=== PATIENT | female | born 1995 | race Caucasian/White ===

== ENCOUNTER 2018-07-13 09:48 | Emergency (ER) | payer SELFPAY ==
[2018-07-13] MEDS ORDERED: NA CHLORIDE 0.9% 1,000 ML ONE (10:18)
[2018-07-13] MEDS ORDERED: KETOROLAC 30 MG/ML INJ ONE (10:23)
[2018-07-13 10:24] LABS: Absolute Lymphocytes (CBC) 3.1 K/uL (0.7-4.9); Absolute Monocytes 0.5 K/uL (0.1-1.3); Absolute Neutrophil 4.4 K/uL (1.8-8.0); Basophils % 0.7 % (0-1.3); Eosinophils % 2.8 % (0-4.4); Hematocrit 43.5 % (36.0-45.0); Lymphocytes % 37.7 % (15.3-44.8); MCH 30.6 pg (27.0-35.0); MCV 88.2 fL (80-100); MPV 9.1 fL (7.6-11.3); Monocytes % 5.9 % (3.3-12.3); RBC Red Blood Cell Count 4.93 M/uL (3.86-4.86)
[2018-07-13 10:37] LABS: BUN Blood Urea Nitrogen 12 mg/dL (7-18); Bicarbonate 25 mmol/L (21-32); Glucose Level 79 mg/dL (74-106); Sodium Level 141 mmol/L (136-145)
--- NOTE | 2018-07-13 11:07 | RAD REPORT ---
EXAM DESCRIPTION: CT - Abdomen Pelvis W Contrast - 07/13/2018 10:57 am CLINICAL HISTORY: Left lower quadrant pain, diarrhea, prior cholecystectomy COMPARISON: None. TECHNIQUE: Biphasic, helical CT imaging of the abdomen and pelvis was performed following 100 ml non -ionic IV contrast. No oral contrast given. All CT scans are performed using dose optimization technique as appropriate and may include automated exposure control or mA/KV adjustment according to patient size. FINDINGS: No suspicious findings in the lung bases. The liver, spleen, and pancreas show no suspicious focal findings. Liver is borderline fatty infiltra camilo. Cholecystectomy clips are present with no biliary tree dilatation. Symmetric renal function is seen with no hydronephrosis or suspicious renal mass. No pyelonephritis o r acute renal parenchymal process. No adrenal abnormality. Contracted urinary bladder shows no bladde r stone. Further assessment is limited. Small follicles or cysts identified in each ovary. No fallopian tube dilatation. No dominant ovarian or adnexal finding. Uterus is unremarkable. No dilated bowel loops or bowel wall thickening. Appendix is normal. No free air, free fluid or infla mmatory stranding. No hernia, mass or bulky lymphadenopathy. No suspicious bony findings. IMPRESSION: Contrast enhanced CT abdomen and pelvis showing no significant or suspicious finding. N o abnormality seen to explain left lower quadrant pain.
[2018-07-13 11:10] LABS: Urine Blood 2+ (NEG); Urine Glucose NEGATIVE (NEG); Urine Protein NEGATIVE (NEG); Urine Specific Gravity >1.030 (1.005-1.030); Urine pH 5.5 (5.0-7.0)
[2018-07-13 11:10] LABS: Urine Specific Gravity >1.030 (1.005-1.030)
--- NOTE | 2018-07-13 11:42 | EDPHYS ---
Physician Documentation [facility] Name: Maxine Malone Age: 23 yrs Sex: Female : 1995 Arrival Date: 07/13/2018 Time: 09:53 Bed 5 Private MD: None, None ED Physician Armando Granados HPI: 07/13 10:18 This 23 yrs old Female presents to ER via Ambulatory with complaints of kb Diarrhea, Abdominal Pain. 10:18 The patient presents with abdominal pain in the left lower quadrant. Onset: The kb symptoms/episode began/occurred 4 day(s) ago. The symptoms do not radiate. Associated signs and symptoms: Pertinent positives: diarrhea, nausea, Pertinent negatives: vomiting. The symptoms are described as constant. Modifying factors: The symptoms are alleviated by nothing, the symptoms are aggravated by pressure. Severity of pain: At its worst the pain was moderate in the emergency department the pain is unchanged. The patient has not experienced similar symptoms in the past. The patient has not recently seen a physician. 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 - Social history:: Smoking status: Patient uses tobacco products, smokes one-half pack cigarettes per day. - Ebola Screening: : No symptoms or risks identified at this time. ROS: 10:17 Constitutional: Negative for fever, chills, and weight loss, Cardiovascular: Negative kb for chest pain, palpitations, and edema, Respiratory: Negative for shortness of breath, cough, wheezing, and pleuritic chest pain, Back: Negative for injury and pain, : Negative for injury, bleeding, discharge, and swelling, MS/Extremity: Negative for injury and deformity, Skin: Negative for injury, rash, and discoloration, Neuro: Negative for headache, weakness, numbness, tingling, and seizure. 10:17 Abdomen/GI: Positive for abdominal pain, nausea, diarrhea, Negative for vomiting. Exam: 10:17 Constitutional: This is a well developed, well nourished patient who is awake, alert, kb and in no acute distress. Head/Face: Normocephalic, atraumatic. Chest/axilla: Normal chest wall appearance and motion. Nontender with no deformity. No lesions are appreciated. Cardiovascular: Regular rate and rhythm with a normal S1 and S2. No gallops, murmurs, or rubs. Normal PMI, no JVD. No pulse deficits. Respiratory: Lungs have equal breath sounds bilaterally, clear to auscultation and percussion. No rales, rhonchi or wheezes noted. No increased work of breathing, no retractions or nasal flaring. Skin: Warm, dry with normal turgor. Normal color with no rashes, no lesions, and no evidence of cellulitis. MS/ Extremity: Pulses equal, no cyanosis. Neurovascular intact. Full, normal range of motion. Neuro: Awake and alert, GCS 15, oriented to person, place, time, and situation. Cranial nerves II-XII grossly intact. Motor strength 5/5 in all extremities. Sensory grossly intact. Cerebellar exam normal. Normal gait. 10:17 Abdomen/GI: Inspection: abdomen appears normal, Bowel sounds: normal, in all quadrants, Palpation: soft, in all quadrants, mild abdominal tenderness, in the left upper quadrant, moderate abdominal tenderness, in the left lower quadrant. Vital Signs: 09:56 BP 151 / 91; Pulse 92; Resp 18 S; Temp 98.3(TE); Pulse Ox 98% on R/A; Weight 108.86 kg aa5 (R); Height 5 ft. 8 in. (172.72 cm) (R); Pain 5/10; 10:39 BP 125 / 80; Pulse 90; Resp 18; Pulse Ox 100% on R/A; hj 11:02 BP 124 / 78; Pulse 82; Resp 18; Pulse Ox 100% on R/A; hj 09:56 Body Mass Index 36.49 (108.86 kg, 172.72 cm) aa5 MDM: 09:59 Patient medically screened. kb 10:17 Data reviewed: vital signs, nurses notes. Data interpreted: Pulse oximetry: on room air kb is 98 %. Interpretation: normal. 11:15 Counseling: I had a detailed discussion with the patient and/or guardian regarding: the kb historical points, exam findings, and any diagnostic results supporting the discharge/admit diagnosis, lab results, radiology results, the need for outpatient follow up, a family practitioner, to return to the emergency department if symptoms worsen or persist or if there are any questions or concerns that arise at home. 10/08 10:08 Order name: Urine Dipstick--Ancillary (enter results); Complete Time: 11:11 iw 07/13 10:09 Order name: Urine --Ancillary (enter results); Complete Time: 11:10 iw 07/13 10:10 Order name: Basic Metabolic Panel; Complete Time: 10:42 kb 07/13 10:10 Order name: CBC with Diff; Complete Time: 10:33 kb 07/13 10:11 Order name: CT Abd/Pelvis - W/Contrast; Complete Time: 11:08 kb 07/13 10:07 Order name: Urine Dipstick-Ancillary (obtain specimen); Complete Time: 10:08 iw 07/13 10:08 Order name: Urine Test (obtain specimen); Complete Time: 10:08 iw 07/13 10:10 Order name: IV Saline Lock; Complete Time: 10:11 kb 07/13 10:10 Order name: Labs collected and sent; Complete Time: 10:11 kb Administered Medications: 10:11 Drug: NS 0.9% 1000 ml Route: IV; Rate: 1000 ml; Site: right forearm; hj 11:44 Follow up: IV Status: Completed infusion; IV Intake: 1000ml hj 10:13 Drug: TORadol 30 mg Route: IVP; Site: right forearm; hj 10:25 Follow up: Response: No adverse reaction; Pain is decreased hj Disposition: 16:31 Co-signature as Attending Physician, Armando Granados MD. gs Disposition: 07/13/18 11:41 Discharged to Home. Impression: Diarrhea, unspecified, Other abdominal pain - left sided. - Condition is Stable. - Discharge Instructions: Food Choices to Help Relieve Diarrhea, Adult, Diarrhea, Adult, [id number]. - Prescriptions for Bentyl 20 mg Oral Tablet - take 1 tablet by ORAL route every 6 hours As needed; 20 tablet. Zofran 4 mg Oral Tablet - take 1 tablet by ORAL route every 6 hours As needed; 20 tablet. - Medication Reconciliation Form, Thank You Letter, Antibiotic Education, Prescription Opioid Use, Family Work Release form. - Follow up: Emergency Department; When: As needed; Reason: Worsening of condition. Follow up: Private Physician; When: 2 - 3 days; Reason: Recheck today's complaints, Continuance of care, Re-evaluation by your physician. Signatures: Dispatcher [employer] EDHI Ina Mathew, TICKET TAKER-C TICKET TAKER-Ckb Kirstie Saul, RN RN iw Annita Mckenzie, RN RN aa5 Art Fink, Armando Galindo RN, MD MD gs Corrections: (The following items were deleted from the chart) 11:50 11:41 07/13/2018 11:41 Discharged to Home. Impression: Diarrhea, unspecified; Other hj abdominal pain - left sided. Condition is Stable. Discharge Instructions: Food Choices to Help Relieve Diarrhea, Adult, Diarrhea, Adult, [id number]. Forms are Medication Reconciliation Form, Thank You Letter, Antibiotic Education, Prescription Opioid Use. Follow up: Emergency Department; When: As needed; Reason: Worsening of condition. Follow up: Private Physician; When: 2 - 3 days; Reason: Recheck today's complaints, Continuance of care, Re-evaluation by your physician. kb 11:52 11:50 07/13/2018 11:41 Discharged to Home. Impression: Diarrhea, unspecified; Other hj abdominal pain - left sided. Condition is Stable. Discharge Instructions: Food Choices to Help Relieve Diarrhea, Adult, Diarrhea, Adult, [id number]. Prescriptions for Bentyl 20 mg Oral Tablet - take 1 tablet by ORAL route every 6 hours As needed; 20 tablet, Zofran 4 mg Oral Tablet - take 1 tablet by ORAL route every 6 hours As needed; 20 tablet. and Forms are Medication Reconciliation Form, Thank You Letter, Antibiotic Education, Prescription Opioid Use. Follow up: Emergency Department; When: As needed; Reason: Worsening of condition. Follow up: Private Physician; When: 2 - 3 days; Reason: Recheck today's complaints, Continuance of care, Re-evaluation by your physician. hj
--- NOTE | 2018-07-13 11:42 | ER ---
Nurse's Notes [facility] Name: Maxine Malone Age: 23 yrs Sex: Female : 1995 Arrival Date: 07/13/2018 Time: 09:53 Bed 5 Private MD: None, None Diagnosis: Diarrhea, unspecified;Other abdominal pain-left sided Presentation: 07/13 09:57 Presenting complaint: Patient states: LLQ pain that began 4 days ago, pt also reports aa5 diarrhea. Transition of care: patient was not received from another setting of care. Onset of symptoms was July 2018. Risk Assessment: Do you want to hurt yourself or someone else? Patient reports no desire to harm self or others. Initial Sepsis Screen: Does the patient meet any 2 criteria? No. Patient's initial sepsis screen is negative. Does the patient have a suspected source of infection? No. Patient's initial sepsis screen is negative. Care prior to arrival: None. 09:57 Method Of Arrival: Ambulatory aa5 09:57 Acuity: KAILA 3 aa5 Triage Assessment: 10:01 General: Appears in no apparent distress. uncomfortable, Behavior is calm, cooperative, hj appropriate for age. Pain: Complains of pain in abdomen. GI: Reports upper abdominal pain, cramping, diarrhea. 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 - Social history:: Smoking status: Patient uses tobacco products, smokes one-half pack cigarettes per day. - Ebola Screening: : No symptoms or risks identified at this time. Screenin:01 Abuse screen: Denies threats or abuse. Denies injuries from another. Nutritional hj screening: No deficits noted. Tuberculosis screening: No symptoms or risk factors identified. Fall Risk None identified. Assessment: 10:02 General: Appears in no apparent distress. uncomfortable, Behavior is calm, cooperative, hj appropriate for age. Pain: Complains of pain in abdomen. Neuro: Level of Consciousness is awake, alert, obeys commands, Oriented to person, place, time, situation, Appropriate for age. Cardiovascular: Capillary refill < 3 seconds Patient's skin is warm and dry. Respiratory: Airway is patent Respiratory effort is even, unlabored, Respiratory pattern is regular, symmetrical. GI: No signs and/or symptoms were reported involving the gastrointestinal system. : No signs and/or symptoms were reported regarding the genitourinary system. EENT: No signs and/or symptoms were reported regarding the EENT system. Derm: No signs and/or symptoms reported regarding the dermatologic system. Musculoskeletal: No signs and/or symptoms reported regarding the musculoskeletal system. 10:30 Reassessment: Patient and/or family updated on plan of care and expected duration. Pain hj level reassessed. Patient is alert, oriented x 3, equal unlabored respirations, skin warm/dry/pink. pain level decreased from 6 to 2;. 10:44 Reassessment: pt wheeled to CT;. hj 11:01 Reassessment: pt back from CT:. hj Vital Signs: 09:56 BP 151 / 91; Pulse 92; Resp 18 S; Temp 98.3(TE); Pulse Ox 98% on R/A; Weight 108.86 kg aa5 (R); Height 5 ft. 8 in. (172.72 cm) (R); Pain 5/10; 10:39 BP 125 / 80; Pulse 90; Resp 18; Pulse Ox 100% on R/A; hj 11:02 BP 124 / 78; Pulse 82; Resp 18; Pulse Ox 100% on R/A; hj 09:56 Body Mass Index 36.49 (108.86 kg, 172.72 cm) aa5 ED Course: 09:53 Patient arrived in ED. mr 09:53 None, None is Private Physician. mr 09:58 Triage completed. aa5 09:58 Arm band placed on. aa5 09:59 Art Fink, ANGEL is Primary Nurse. hj 09:59 Ina Mathew FNP-C [facility]. kb 09:59 Armando Granados MD is Attending Physician. kb 10:02 Patient has correct armband on for positive identification. Placed in gown. Bed in low hj position. Call light in reach. Side rails up X 1. Adult w/ patient. 10:15 Initial lab(s) drawn, by me, sent to lab. Inserted saline lock: 22 gauge in right hj forearm, using aseptic technique. Blood collected. 10:[address] via wheelchair. vr 10:57 CT Abd/Pelvis - W/Contrast In Process Unspecified. EDMS 11:42 No provider procedures requiring assistance completed. IV discontinued, intact, hj bleeding controlled, No redness/swelling at site. Pressure dressing applied. Administered Medications: 10:11 Drug: NS 0.9% 1000 ml Route: IV; Rate: 1000 ml; Site: right forearm; hj 11:44 Follow up: IV Status: Completed infusion; IV Intake: 1000ml hj 10:13 Drug: TORadol 30 mg Route: IVP; Site: right forearm; hj 10:25 Follow up: Response: No adverse reaction; Pain is decreased hj Intake: 11:44 IV: 1000ml; Total: 1000ml. hj Outcome: 11:41 Discharge ordered by MD. kb 11:42 Discharged to home ambulatory, with family. hj 11:42 Condition: stable 11:42 Discharge instructions given to patient, Instructed on discharge instructions, follow up and referral plans. medication usage, Demonstrated understanding of instructions, follow-up care, medications, Prescriptions given X 2. 11:50 Patient left the ED. hj 11:52 Patient left the ED. hj Signatures: Dispatcher [employer] EDMS Ina Mathew, NEWS ASSISTANT-C NEWS ASSISTANT-Amee Deal mr MckenzieAnnita, RN RN Chel Mathur Henry, RN RN hj Corrections: (The following items were deleted from the chart) 11:43 11:42 Discharge instructions given to patient, Instructed on discharge instructions, hj follow up and referral plans. Demonstrated understanding of instructions, follow-up care, hj
== END 2018-07-13 11:52 | disposition home or self-care (01) ==
LOC: ER 09:48
DX: R19.7 Diarrhea, unspecified (principal); F17.210 Nicotine dependence, cigarettes, uncomplicated; Z88.8 Allergy status to other drugs, medicaments and biological substances
CPT/HCPCS: 36415; 74177; 80048; 81003; 81025; 85025; 96361; 96374; 99284; J7030; Q9967

== ENCOUNTER 2019-03-09 15:49 | Emergency (ER) | payer SELFPAY ==
[2019-03-09 16:40] LABS: Urine Blood NEGATIVE (NEG); Urine Glucose NEGATIVE (NEG); Urine Protein NEGATIVE (NEG); Urine Specific Gravity >1.030 (1.005-1.030); Urine pH 5.5 (5.0-7.0)
[2019-03-09 16:51] LABS: Urine Bacteria 20-50 /HPF (<20); Urine Culture Reflex Order REFLEXED; Urine RBC NONE SEEN /HPF (NONE SEEN)
[2019-03-09] MEDS ORDERED: ONDANSETRON 4 MG/2 ML VIAL ONE (17:19)
[2019-03-09] MEDS ORDERED: NA CHLORIDE 0.9% 1,000 ML ONE (17:19)
[2019-03-09 17:23] LABS: Absolute Lymphocytes (CBC) 2.8 K/uL (0.7-4.9); Absolute Monocytes 0.4 K/uL (0.1-1.3); Absolute Neutrophil 3.2 K/uL (1.8-8.0); Basophils % 0.6 % (0-1.3); Eosinophils % 1.8 % (0-4.4); Hematocrit 40.6 % (36.0-45.0); Lymphocytes % 42.7 % (15.3-44.8); MPV 9.5 fL (7.6-11.3); Monocytes % 5.8 % (3.3-12.3); RBC Red Blood Cell Count 4.79 M/uL (3.86-4.86)
[2019-03-09 17:36] LABS: ALT/SGPT 34 U/L (12-78); AST/SGOT 26 U/L (15-37); Albumin 3.5 g/dL (3.4-5.0); Alkaline Phosphatase 64 U/L (45-117); BUN Blood Urea Nitrogen 7 mg/dL (7-18); Bicarbonate 23 mmol/L (21-32); Bilirubin Direct < 0.1 mg/dL (0-0.2); Bilirubin Total 0.2 mg/dL (0.2-1.0); Glucose Level 89 mg/dL (74-106); Lipase 83 U/L (73-393); Potassium 3.9 mmol/L (3.5-5.1); Protein, Total 7.3 g/dL (6.4-8.2); Sodium Level 140 mmol/L (136-145)
--- NOTE | 2019-03-09 18:09 | EDPHYS ---
Physician Documentation [facility] Name: Maxine Malone Age: 23 yrs Sex: Female : 1995 Arrival Date: 03/09/2019 Time: 15:55 Bed 6 Private MD: OLGA LIDIA Physician Truman Green HPI: 03/09 17:00 This 23 yrs old Female presents to ER via Ambulatory with complaints of kb Dizziness, Decreased Appetite, rib pain. 17:00 The patient presents with abdominal pain in the left upper quadrant. Onset: The kb symptoms/episode began/occurred 3 day(s) ago. The symptoms do not radiate. Associated signs and symptoms: Pertinent positives: diarrhea, nausea, Pertinent negatives: dysuria, fever, vomiting. The symptoms are described as constant, crampy. Modifying factors: The symptoms are alleviated by nothing, the symptoms are aggravated by nothing. Severity of pain: At its worst the pain was moderate in the emergency department the pain is unchanged. The patient has not experienced similar symptoms in the past. The patient has not recently seen a physician. 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 - Social history:: Smoking status: . - Ebola Screening: : Patient denies travel to an Ebola-affected area in the 21 days before illness onset. ROS: 17:00 Constitutional: Negative for fever, chills, and weight loss, ENT: Negative for injury, kb pain, and discharge, Neck: Negative for injury, pain, and swelling, Cardiovascular: Negative for chest pain, palpitations, and edema, Respiratory: Negative for shortness of breath, cough, wheezing, and pleuritic chest pain, Back: Negative for injury and pain, : Negative for injury, bleeding, discharge, and swelling, MS/Extremity: Negative for injury and deformity, Skin: Negative for injury, rash, and discoloration, Neuro: Negative for headache, weakness, numbness, tingling, and seizure. 17:00 Abdomen/GI: Positive for abdominal pain, nausea, diarrhea, Negative for vomiting. Exam: 17:00 Constitutional: This is a well developed, well nourished patient who is awake, alert, kb and in no acute distress. Head/Face: Normocephalic, atraumatic. Chest/axilla: Normal chest wall appearance and motion. Nontender with no deformity. No lesions are appreciated. Cardiovascular: Regular rate and rhythm with a normal S1 and S2. No gallops, murmurs, or rubs. Normal PMI, no JVD. No pulse deficits. Respiratory: Lungs have equal breath sounds bilaterally, clear to auscultation and percussion. No rales, rhonchi or wheezes noted. No increased work of breathing, no retractions or nasal flaring. Back: No spinal tenderness. No costovertebral tenderness. Full range of motion. Skin: Warm, dry with normal turgor. Normal color with no rashes, no lesions, and no evidence of cellulitis. MS/ Extremity: Pulses equal, no cyanosis. Neurovascular intact. Full, normal range of motion. Neuro: Awake and alert, GCS 15, oriented to person, place, time, and situation. Cranial nerves II-XII grossly intact. Motor strength 5/5 in all extremities. Sensory grossly intact. Cerebellar exam normal. Normal gait. 17:00 Abdomen/GI: Inspection: abdomen appears normal, Bowel sounds: normal, in all quadrants, Palpation: soft, in all quadrants, mild abdominal tenderness, in the left lower quadrant, moderate abdominal tenderness, in the left upper quadrant. Vital Signs: 16:06 BP 135 / 90; Pulse 74; Resp 17; Temp 97.0(TE); Pulse Ox 98% on R/A; Weight 120.66 kg tw2 (R); Height 5 ft. 9 in. (175.26 cm); Pain 0/10; 17:39 BP 130 / 75; Pulse 78; Resp 17; Temp 98.4(O); Pulse Ox 100% on R/A; mh5 17:39 BP 130 / 75; Pulse 57; Resp 18; Pulse Ox 99% on R/A; sg 18:35 BP 127 / 72; Pulse 68; Resp 18; Temp 97.9; Pulse Ox 99% on R/A; ph 16:06 Body Mass Index 39.28 (120.66 kg, 175.26 cm) tw2 MDM: 16:29 Patient medically screened. kb 17:00 Data reviewed: vital signs, nurses notes. Data interpreted: Pulse oximetry: on room air kb is 98 %. Interpretation: normal. 18:08 Counseling: I had a detailed discussion with the patient and/or guardian regarding: the kb historical points, exam findings, and any diagnostic results supporting the discharge/admit diagnosis, lab results, the need for outpatient follow up, a family practitioner, to return to the emergency department if symptoms worsen or persist or if there are any questions or concerns that arise at home. 03/09 16:18 Order name: Urine Microscopic Only; Complete Time: 16:53 snw 03/09 16:31 Order name: Urine Dipstick--Ancillary (enter results); Complete Time: 16:43 bd 03/09 16:31 Order name: Urine --Ancillary (enter results); Complete Time: 16:43 bd 03/09 16:33 Order name: Basic Metabolic Panel; Complete Time: 17:38 kb 03/09 16:33 Order name: CBC with Diff; Complete Time: 17:38 kb 03/09 16:33 Order name: Hepatic Function; Complete Time: 17:38 kb 03/09 16:18 Order name: Urine Test (obtain specimen); Complete Time: 16:30 snw 03/09 16:18 Order name: Urine Dipstick-Ancillary (obtain specimen); Complete Time: 16:30 snw 04 16:33 Order name: Lipase; Complete Time: 17:38 kb 03/09 16:33 Order name: IV Saline Lock; Complete Time: 17:02 kb 03/09 16:33 Order name: Labs collected and sent; Complete Time: 17:02 kb 03/09 16:53 Order name: Urine Culture EDMS Administered Medications: 17:04 Drug: NS 0.9% 1000 ml Route: IV; Rate: 1000 ml; Site: right antecubital; sg 18:28 Follow up: Response: No adverse reaction; IV Status: Completed infusion; IV Intake: ph 1000ml 17:05 Drug: Zofran 4 mg Route: IVP; Site: right antecubital; sg 18:28 Follow up: Response: No adverse reaction; Nausea is decreased ph Disposition: 03/10 07:46 Co-signature as Attending Physician, Truman Green MD I agree with the assessment and aurora plan of care. Disposition: 03/09/19 18:09 Discharged to Home. Impression: Diarrhea, unspecified, Urinary tract infection, site not specified. - Condition is Stable. - Discharge Instructions: Urinary Tract Infection, Adult, [id number], Diarrhea, Adult, [id number]. - Prescriptions for Macrobid 100 mg Oral Capsule - take 1 capsule by ORAL route every 12 hours for 5 days; 10 capsule. - Medication Reconciliation Form, Thank You Letter, Antibiotic Education, Prescription Opioid Use, Family Work Release, Work release form form. - Follow up: Emergency Department; When: As needed; Reason: Worsening of condition. Follow up: Private Physician; When: 2 - 3 days; Reason: Recheck today's complaints, Continuance of care, Re-evaluation by your physician. Signatures: Dispatcher [employer] EDIna Paul, NOVA-C DESIGN INSERTER-Petr Yun, RN RN Truman Don MD MD cha Therrien, Shelly, NOVA-C DESIGN INSERTER-Andradew Mare Pierre RN RN Estephania Grady RN RN tw2 Corrections: (The following items were deleted from the chart) 03/09 18:36 18:09 03/09/2019 18:09 Discharged to Home. Impression: Diarrhea, unspecified; Urinary ph tract infection, site not specified. Condition is Stable. Forms are Work release form, Medication Reconciliation Form, Thank You Letter, Antibiotic Education, Prescription Opioid Use. Follow up: Emergency Department; When: As needed; Reason: Worsening of condition. Follow up: Private Physician; When: 2 - 3 days; Reason: Recheck today's complaints, Continuance of care, Re-evaluation by your physician. kb
--- NOTE | 2019-03-09 18:09 | ER ---
Nurse's Notes [facility] Name: Maxine Malone Age: 23 yrs Sex: Female : 1995 Arrival Date: 03/09/2019 Time: 15:55 Bed 6 Private MD: Diagnosis: Diarrhea, unspecified;Urinary tract infection, site not specified Presentation: 03/09 16:04 Presenting complaint: Patient states: i have having dizziness and LEFT sided pressure tw2 on the ribs for 3 days, and i felt nauseous, have had some diarrhea, and loss of appetite for 3 days now. Transition of care: patient was not received from another setting of care. Onset of symptoms was March 09, 2019. Risk Assessment: Do you want to hurt yourself or someone else? Patient reports no desire to harm self or others. Initial Sepsis Screen: Does the patient meet any 2 criteria? No. Patient's initial sepsis screen is negative. Does the patient have a suspected source of infection? No. Patient's initial sepsis screen is negative. Care prior to arrival: None. 16:04 Method Of Arrival: Ambulatory tw2 16:04 Acuity: KAILA 3 tw2 Triage Assessment: 16:07 General: Appears in no apparent distress. obese, Behavior is calm, cooperative, tw2 appropriate for age. Pain: Complains of pain in left lateral posterior chest. GI: Reports nausea. 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 - Social history:: Smoking status: . - Ebola Screening: : Patient denies travel to an Ebola-affected area in the 21 days before illness onset. Screenin:33 Abuse screen: Denies threats or abuse. Nutritional screening: No deficits noted. tw2 Tuberculosis screening: No symptoms or risk factors identified. Fall Risk None identified. Assessment: 16:50 General: Appears in no apparent distress. well groomed, well developed, well nourished, sg Behavior is calm, cooperative, appropriate for age. Pain: Complains of pain in left lateral posterior chest Quality of pain is described as tender. Neuro: Level of Consciousness is awake, alert, obeys commands, Oriented to person, place, time, Dental Floss Packer are equal bilaterally Speech is normal, Facial symmetry appears normal. Cardiovascular: Capillary refill is brisk in bilateral fingers Patient's skin is warm and dry. Chest pain is denied. Respiratory: Airway is patent Respiratory effort is even, unlabored, Respiratory pattern is regular, symmetrical. GI: Abdomen is round non-distended. : No signs and/or symptoms were reported regarding the genitourinary system. EENT: No signs and/or symptoms were reported regarding the EENT system. Derm: Skin is pink, warm \T\ dry. Musculoskeletal: No signs and/or symptoms reported regarding the musculoskeletal system. 18:28 Reassessment: Patient appears in no apparent distress at this time. Patient and/or ph family updated on plan of care and expected duration. Pain level reassessed. Patient is alert, oriented x 3, equal unlabored respirations, skin warm/dry/pink. Pt d/c home w/ SO\E\. Vital Signs: 16:06 BP 135 / 90; Pulse 74; Resp 17; Temp 97.0(TE); Pulse Ox 98% on R/A; Weight 120.66 kg tw2 (R); Height 5 ft. 9 in. (175.26 cm); Pain 0/10; 17:39 BP 130 / 75; Pulse 78; Resp 17; Temp 98.4(O); Pulse Ox 100% on R/A; mh5 17:39 BP 130 / 75; Pulse 57; Resp 18; Pulse Ox 99% on R/A; sg 18:35 BP 127 / 72; Pulse 68; Resp 18; Temp 97.9; Pulse Ox 99% on R/A; ph 16:06 Body Mass Index 39.28 (120.66 kg, 175.26 cm) tw2 ED Course: 15:55 Patient arrived in ED. mr 16:06 Triage completed. tw2 16:07 Arm band placed on. tw2 16:28 Bed in low position. Call light in reach. tw2 16:29 Ina Mathew FNP-C [facility]. kb 16:29 Truman Green MD is Attending Physician. kb 16:30 Urine collected: clean catch specimen, clear. 3 16:47 Petr Seals, ANGEL is Primary Nurse. sg 17:05 Initial lab(s) drawn, by me, sent to lab. Inserted saline lock: 22 gauge in right sg antecubital area, using aseptic technique. Blood collected. 18:35 No provider procedures requiring assistance completed. IV discontinued, intact, ph bleeding controlled, No redness/swelling at site. Pressure dressing applied. Administered Medications: 17:04 Drug: NS 0.9% 1000 ml Route: IV; Rate: 1000 ml; Site: right antecubital; sg 18:28 Follow up: Response: No adverse reaction; IV Status: Completed infusion; IV Intake: ph 1000ml 17:05 Drug: Zofran 4 mg Route: IVP; Site: right antecubital; sg 18:28 Follow up: Response: No adverse reaction; Nausea is decreased ph Intake: 18:28 IV: 1000ml; Total: 1000ml. ph Outcome: 18:09 Discharge ordered by . kb 18:36 Discharged to home ambulatory, with significant other. ph 18:36 Condition: good 18:36 Discharge instructions given to patient, Instructed on discharge instructions, follow up and referral plans. medication usage, Demonstrated understanding of instructions, follow-up care, medications, Prescriptions given X 1. 18:36 Patient left the ED. ph Signatures: Ina Mathew, JUNIOR DESIGNER-C JUNIOR DESIGNER-Ckb Petr Seals, RN RN Amee Schneider mr Mare Pierre RN RN Estephania Moran RN RN [facility] Stephani Guzman [facility] Amrita Schmidt 3 Corrections: (The following items were deleted from the chart) 16:07 16:06 BP 135 / 90; Pulse 74bpm; Resp 17bpm; Pulse Ox 98% RA; Temp 97.0F Temporal; tw2 tw2
== END 2019-03-09 18:36 | disposition home or self-care (01) ==
LOC: ER 15:49
DX: N39.0 Urinary tract infection, site not specified (principal); R19.7 Diarrhea, unspecified; Z88.8 Allergy status to other drugs, medicaments and biological substances
CPT/HCPCS: 36415; 80048; 80076; 81003; 81015; 81025; 83690; 85025; 87086; 87088; 96361; 96374; 99284; J2405; J7030